=== PATIENT | male | born 1930 | race Caucasian/White ===

== ENCOUNTER 2016-12-09 05:42 | Day surgery (SDC) | payer OTHER, BC ==
[2016-12-08 10:15] VITALS: BMI 24.7
[2016-12-09] MEDS ORDERED: ceFAZolin SODIUM 1 GM VIAL IVPB ONE (10:30)
[2016-12-09] MEDS ORDERED: ceFAZolin SODIUM 1 GM VIAL ONE (10:43)
[2016-12-09] MEDS ORDERED: GENTAMICIN SO4 80 MG/2 ML VIAL ONE (10:44)
[2016-12-09] MEDS ORDERED: GENTAMICIN SO4 80 MG/2 ML VIAL IVPB ONE (10:45)
[2016-12-09] MEDS ORDERED: oxyCODONE HCL 5 MG TABLET PO PRN (11:28)
--- NOTE | 2016-12-09 11:28 | OP ---
Operative Note - Note: Operative Date: 12/09/16 Pre-Operative Diagnosis: bladder stone/bph Operation: cysto/laser litho of bladder stone, BIpolar TURVP Findings: bladder stone, BPH Post-Operative Diagnosis: Same as Pre-op Surgeon: Ap Clemons Anesthesia: General, Spinal Specimens Removed: bladder stone Estimated Blood Loss (mls): 10 Drains & Tubes with Location: 24fr hawk Operative Report Dictated: Yes
[2016-12-09] MEDS ORDERED: DEXTROSE 5%-0.45% SALINE 1,000 ML IV SCH (11:30)
[2016-12-09] MEDS: hydrALAZINE HCL 20 MG/ML VIAL IVPUSH ONE ×2 (12:50→15:38)
[2016-12-09] MEDS ORDERED: ONDANSETRON 4 MG/2 ML VIAL IVPUSH PRN (13:06)
--- NOTE | 2016-12-09 13:14 | OP ---
DATE OF OPERATION: 12/09/2016 PREOPERATIVE DIAGNOSIS: Bladder stone and benign prostatic hypertrophy. POSTOPERATIVE DIAGNOSIS: Bladder stone and benign prostatic hypertrophy. PROCEDURE: Cystoscopy, laser lithotripsy of bladder stone, bipolar transurethral vaporization of the prostate. SURGEON: Eamon Mccollum MD INDICATIONS: The patient is an 86-year-old male with BPH and bladder stones who did go to the OR for laser lithotripsy of bladder stone and treatment of the BPH with bipolar transurethral vaporization of the prostate. The risks, benefits, and alternatives were discussed including bleeding, infection, stricture formation, and potential need for additional procedure, potential recurrence of stones, impotence, incontinence, DESCRIPTION OF PROCEDURE: After informed consent was obtained, the patient was taken to the OR and placed supine upon the table. After cardiac monitoring was administered, spinal anesthetic was given. He was prepped and draped in the dorsal lithotomy position. He was given a gram of Ancef and 8 of gentamicin. At this point then the 22-sheath resectoscope was inserted without difficulty. The meatus was mildly narrowed and had to be dilated, but the rest of the urethra was normal. The prostatic urethra was 4 cm and visually occlusive. The bladder was visualized. A moderate-sized stone was noted in the bladder. Using the 1000 micron laser fiber, the stone was pulverized to fine dust into 3-mm fragments. These were all removed with the [employer] evacuator. With the stone completely removed, the cystoscope was then removed, and then resectoscope was inserted into the bladder. Using the bipolar button, the prostate tissue was vaporized circumferentially starting at the bladder neck and ending semi proximal to the verumontanum to minimize any incontinence until a wide open channel was created. All bleeding sites were cauterized. Resectoscope was then removed, and then 24-[place] Armstrong was then placed to straight drainage. Light pink tinged urine was retrieved. The patient was awoken from anesthesia and transferred to recovery in stable condition. There were no complications. Estimated blood loss was minimal. EAMON MCCOLLUM M.D. [id number]
[2016-12-09] MEDS ORDERED: PT OWN MED DRAWER 7, Y5N ONE ×2 (17:19→21:38)
[2016-12-09] MEDS: BRIMONIDINE TARTRATE 0.2% OPHTHALMIC 5 ML BOTTLE OU SCH (21:46)
[2016-12-09] MEDS: DORZOLAMIDE 2% HCL OPHTHALMIC SOLUTION 10 ML BOTTLE OS SCH (21:47)
[2016-12-09] MEDS: TIMOLOL 0.5% OPHTHALMIC SOL 5 ML BOTTLE OU SCH (21:47)
[2016-12-09] MEDS ORDERED: ATORVASTATIN CA 10 MG TABLET (FP) PO SCH (22:00)
[2016-12-09] MEDS ORDERED: LATANOPROST 0.005% OPHTH SOLN 2.5ML BOTTLE OU SCH (22:00)
[2016-12-09] MEDS ORDERED: KETOROLAC 0.5% OD SCH (22:00)
[2016-12-09] MEDS ORDERED: [UNRECOGNIZED DRUG - OTHER] OD SCH (22:00)
[2016-12-10] MEDS ORDERED: PT OWN MED DRAWER 7, Y5N ONE ×2 (06:06→09:13)
[2016-12-10] MEDS ORDERED: glipiZIDE 5 MG TABLET (FP) ONE (06:06)
[2016-12-10] MEDS: DORZOLAMIDE 2% HCL OPHTHALMIC SOLUTION 10 ML BOTTLE OS SCH (06:23)
[2016-12-10] MEDS ORDERED: glipiZIDE 10 MG TABLET (FP) PO SCH (07:00)
[2016-12-10] MEDS ORDERED: metFORMIN HCL 500 MG TABLET (FP) PO SCH (07:00)
[2016-12-10] MEDS ORDERED: PIOGLITAZONE HCL 30 MG TABLET (FP) PO SCH (07:00)
[2016-12-10 09:22] VITALS: BP 146/85; PULSE 81; TEMP 98.4
[2016-12-10] MEDS: TIMOLOL 0.5% OPHTHALMIC SOL 5 ML BOTTLE OU SCH (09:23)
[2016-12-10] MEDS: BRIMONIDINE TARTRATE 0.2% OPHTHALMIC 5 ML BOTTLE OU SCH (09:23)
[2016-12-10] MEDS ORDERED: ENALAPRIL MALEATE 2.5 MG TABLET (FP) PO SCH (10:00)
--- NOTE | 2016-12-10 14:29 | PATH ---
Surgical Pathology Report Patient Name: KANDACE GAGNON [facility]. Rec. #: [id number] /Age/Gender: 1930 (Age: 86) / M Account: [id number] Location: AMBULATORY SURG Taken: 12/09/2016 Received: 12/09/2016 Reported: 12/10/2016 Physicians: Ap Clemons M.D. Specimen(s) Received BLADDER STONE Clinical History Bladder stone, BPH Final Diagnosis BLADDER STONE, EXTRACTION: CALCULUS (GROSS EXAM). SPECIMEN SENT FOR CHEMICAL ANALYSIS. Electronically Signed Zackery Coronado M.D. Gross Description Received fresh labeled "bladder stone" is a 1.1 x 0.7 x 0.3 cm aggregate of contreras fragmented calculi. The specimen is sent for chemical analysis. /12/09/201612/09/2016
[2016-12-18 00:07] LABS: COLOR Orange (.); URIC ACID 100 % (.)
== END 2016-12-10 10:32 | disposition home or self-care (01) ==
LOC: JASUSAT 05:42 → JASU-SURG 05:42 → J8W 15:06 → JASUSAT 12-10 10:32
PROVIDERS: ATTEND Urology
PROC: 0VT08ZZ Resection of Prostate, Via Natural or Artificial Opening Endoscopic (ICD-10-PCS; principal; 2016-12-09 09:30)
PROC: 0TCB8ZZ Extirpation of Matter from Bladder, Via Natural or Artificial Opening Endoscopic (ICD-10-PCS; 2016-12-09 09:30)
DX: N21.0 Calculus in bladder (principal); N40.0 Benign prostatic hyperplasia without lower urinary tract symptoms
CPT/HCPCS: 36415; 82360; 88300-TC; 94760